=== PATIENT | female | born 1990 | race Caucasian/White ===

== ENCOUNTER 2019-03-24 15:08 | Emergency (ER) | payer OTHER ==
[2019-03-24] MEDS ORDERED: Sodium Chloride 0.9% 1000 ML 1,000 ML IV STA ×2 (15:38→16:56)
[2019-03-24] MEDS ORDERED: TORAdol 30 mg Injection IV ONE (15:38)
[2019-03-24] MEDS ORDERED: TORAdol 30 mg Injection ONE (15:46)
[2019-03-24] MEDS ORDERED: Sodium Chloride 0.9% 1000 ML 1,000 ML ONE ×2 (15:46→17:31)
[2019-03-24 15:58] LABS: Appearance CLEAR (CLEAR); Bilirubin NEGATIVE (NEGATIVE); Blood NEGATIVE Ery/ul (0-5); Epithelial Cells RARE /HPF (FEW); Glucose NEGATIVE (NEGATIVE); Ketones NEGATIVE (NEGATIVE); Leukocyte Esterase NEGATIVE (NEGATIVE); Nitrite NEGATIVE (NEGATIVE); Protein,Urine Dip NEGATIVE (Negative); Specific Gravity 1.005 (1.005-1.025); Urobilinogen NEGATIVE mg/dL (0-1)
[2019-03-24 16:07] LABS: BASOPHIL % 0.6 % (0.0-0.4); Basophil (Absolute #) 0.05 (0-0.4); Eosinophil % 1.1 % (0.00-5.0); Eosinophil (Absolute #) 0.09 (0-0.5); Granulocyte Absolute (ANC) 4.95 (1.4-6.9); Granulocytes % 60.6 % (36.0-66.0); Hematocrit 45.1 % (35-47); Hemoglobin 15.9 gm/dl (12.0-16.0); Lymphocyte (Absolute #) 2.43 (1.0-4.6); Lymphocytes % 29.7 % (24.0-44.0); Mean Cell Volume 89.8 fl (78-100); Mean Corpuscular Hemoglobin 31.7 pg (26-32); Mean Corpuscular Hgb Concent. 35.3 g/dl (32-36); Mean Platelet Volume 10.3 fl (6-9.5); Monocyte (Absolute #) 0.65 (0.0-1.3); Platelet Count 248 K/mm3 (150-450); Red Blood Count 5.02 M/mm3 (4.1-5.4); Red Cell Distribution Width 12.7 % (11.5-14.0); White Blood Count 8.2 K/mm3 (4.0-10.5)
[2019-03-24 16:17] LABS: ALBUMIN 4.4 g/dL (3.5-5.0); ALKALINE PHOSPHATASE 59 U/L (38-126); ANION GAP 12.7 MEQ/L (5-15); BLOOD UREA NITROGEN 9 mg/dL (7-17); CHLORIDE 102 mmol/L (98-107); Carbon Dioxide 29 mmol/L (22-30); Creatinine 1 0.66 mg/dL (0.52-1.04); Glucose 96 mg/dL (74-106); Potassium 3.9 mmol/L (3.5-5.1); SGOT/AST 23 U/L (14-36); SGPT/ALT 18 U/L (0-35); SODIUM 140 mmol/L (137-145); Total Protein 7.6 g/dL (6.3-8.2)
[2019-03-24 16:17] LABS: Bacteria NONE SEEN /HPF (NEGATIVE)
[2019-03-24 16:41] VITALS: O2SAT 100
[2019-03-24 17:29] VITALS: PULSE 96
--- NOTE | 2019-03-24 18:18 | ERPHSYRPT ---
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 PT STATES WORSE TODAY AND BLEEDING HAS STOPPED. Triage Nursing Assessment: PT ARRIVES P/W/D RESP EASY A@OX3 STATES SEVERE PAIN TO MID LOWER ABD PT IS GAURDED WITH MOVEMENT STATES ONLY MILD PAIN WITH PALPATION TO UPPER ABD THOUGH MODERATE PAIN TO LOWER WITH PALPATION. PT BS+X4 Physician History: Pt is a 28 y/o female that presented to the ED with pain in the LLQ. Pt got her period today and it is on her regular cycle. Pt denies any dysuria, frequency or urgency. Pt denies F/C/S. No N/V/D or abdominal pain. No SOB or cough. Timing/Duration: today Activites at Onset: none Quality: cramping, sharpness Onset Location: LLQ Pain Radiation: none Severity of Pain-Max: moderate Severity of Pain-Current: mild Prior abdominal problems: none Modifying Factors: Improves With: analgesics Associated Symptoms: abdominal pain Allergies/Adverse Reactions: No Known Drug Allergies Allergy (Unverified 03/24/19 15:15) Home Medications: Norgestimate-Ethinyl Estradiol [Tri-Sprintec] 1 tab PO DAILY 03/24/19 [History] - Review of Systems Constitutional: No Fever, No Chills Eyes: No Symptoms Ears, Nose, & Throat: No Symptoms Respiratory: No Cough, No Dyspnea Cardiac: No Chest Pain, No Edema, No Syncope Abdominal/Gastrointestinal: Abdominal Pain (LLQ) Genitourinary Symptoms: No Dysuria Musculoskeletal: No Back Pain, No Neck Pain Neurological: No Dizziness, No Focal Weakness, No Sensory Changes - Past Medical History Pertinent Past Medical History: Yes Other Medical History: OVARIAN CYST AND KIDNEY STONES - Past Surgical History Past Surgical History: Yes Other Surgical History: LEEP - Social History Smoking Status: Current every day smoker - Female History Hx Last Menstrual Period: 03/19/19 Hx Now: No - Nursing Vital Signs Nursing Vital Signs: Initial Vital Signs Pulse Rate 78 03/24/19 15:17 Respiratory Rate 18 03/24/19 15:17 Blood Pressure 160/104 03/24/19 15:17 O2 Sat by Pulse Oximetry 98 03/24/19 15:17 Pain Scale Pain Intensity 6 - Physical Exam General Appearance: mild distress, alert Eye Exam: PERRL/EOMI, eyes nml inspection Ears, Nose, Throat Exam: normal ENT inspection, TMs normal, pharynx normal, moist mucous membranes Neck Exam: normal inspection, non-tender, supple, full range of motion Respiratory Exam: normal breath sounds, lungs clear, No respiratory distress Cardiovascular Exam: regular rate/rhythm, normal heart sounds, normal peripheral pulses Gastrointestinal/Abdomen Exam: tenderness (LLQ) Pelvic Exam: not done Back Exam: normal inspection, normal range of motion, No CVA tenderness, No vertebral tenderness Extremity Exam: normal inspection, normal range of motion, pelvis stable Neurologic Exam: alert, oriented x 3, cooperative, 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 No hydronephrosis or evidence of obstructive urolithiasis) Ordered Tests: Active Orders 24 hr Category Date Time Status ABDOMEN AND PELVIS W/0 CONTRAS [CT] Stat Exams 03/24/19 15:39 Taken CBC W DIFF Stat Lab 03/24/19 16:02 Completed CMP Stat Lab 03/24/19 16:02 Completed UA W/RFX UR CULTURE Stat Lab 03/24/19 15:53 Completed Medication Summary Discontinued Medications Generic Name Dose Route Start Last Admin Trade Name Freq PRN Reason Stop Dose Admin Sodium Chloride 1,000 mls @ 999 mls/hr 03/24/19 15:38 03/24/19 17:38 Sodium Chloride 0.9% 1000 Ml IV 03/24/19 16:38 Infused .Q1H1M STA Infusion Sodium Chloride Confirm 03/24/19 15:46 Sodium Chloride 0.9% 1000 Ml Administered 03/24/19 15:47 Dose 1,000 mls @ ud .ROUTE .STK-MED ONE Sodium Chloride 1,000 mls @ 999 mls/hr 03/24/19 16:56 03/24/19 17:33 Sodium Chloride 0.9% 1000 Ml IV 03/24/19 17:56 999 mls/hr .Q1H1M STA Administration Sodium Chloride Confirm 03/24/19 17:31 Sodium Chloride 0.9% 1000 Ml Administered 03/24/19 17:32 Dose 1,000 mls @ ud .ROUTE .STK-MED ONE Ketorolac Tromethamine 30 mg 03/24/19 15:38 03/24/19 16:03 Toradol 30 Mg Injection IV 03/24/19 15:39 30 mg STAT ONE Administration Ketorolac Tromethamine Confirm 03/24/19 15:46 Toradol 30 Mg Injection Administered 03/24/19 15:47 Dose 30 mg .ROUTE .K-MED ONE Lab/Rad Data: Laboratory Result Diagrams 03/24/19 16:02 03/24/19 16:02 Laboratory Results 03/24/19 03/24/19 03/24/19 Range/Units 16:02 16:02 15:53 WBC 8.2 (4.0-10.5) K/mm3 RBC 5.02 (4.1-5.4) M/mm3 Hgb 15.9 (12.0-16.0) gm/dl Hct 45.1 (35-47) % MCV 89.8 (78-100) fl MCH 31.7 (26-32) pg MCHC 35.3 (32-36) g/dl RDW 12.7 (11.5-14.0) % Plt Count 248 (150-450) K/mm3 MPV 10.3 H (6-9.5) fl Gran % 60.6 (36.0-66.0) % Eos # (Auto) 0.09 (0-0.5) Absolute Lymphs (auto) 2.43 (1.0-4.6) Absolute Monos (auto) 0.65 (0.0-1.3) Lymphocytes % 29.7 (24.0-44.0) % Monocytes % 8.0 (0.0-12.0) % Eosinophils % 1.1 (0.00-5.0) % Basophils % 0.6 (0.0-0.4) % Absolute Granulocytes 4.95 (1.4-6.9) Basophils # 0.05 (0-0.4) Sodium 140 (137-145) mmol/L Potassium 3.9 (3.5-5.1) mmol/L Chloride 102 (98-107) mmol/L Carbon Dioxide 29 (22-30) mmol/L Anion Gap 12.7 (5-15) MEQ/L BUN 9 (7-17) mg/dL Creatinine 0.66 (0.52-1.04) mg/dL Estimated GFR > 60.0 ML/MIN Glucose 96 (74-106) mg/dL Calcium 10.0 (8.4-10.2) mg/dL Total Bilirubin 0.50 (0.2-1.3) mg/dL AST 23 (14-36) U/L ALT 18 (0-35) U/L Alkaline Phosphatase 59 (38-126) U/L Serum Total Protein 7.6 (6.3-8.2) g/dL Albumin 4.4 (3.5-5.0) g/dL Urine Color STRAW (YELLOW) Urine Appearance CLEAR (CLEAR) Urine pH 7.0 (5-6) Ur Specific [place] 1.005 (1.005-1.025) Urine Protein NEGATIVE (Negative) Urine Ketones NEGATIVE (NEGATIVE) Urine Blood NEGATIVE (0-5) Jose/ul Urine Nitrite NEGATIVE (NEGATIVE) Urine Bilirubin NEGATIVE (NEGATIVE) Urine Urobilinogen NEGATIVE (0-1) mg/dL Ur Leukocyte Esterase NEGATIVE (NEGATIVE) Urine WBC (Auto) NONE (0-5) /HPF Urine RBC (Auto) NONE (0-2) /HPF U Epithel Cells (Auto) RARE (FEW) /HPF Urine Bacteria (Auto) NONE SEEN (NEGATIVE) /HPF Urine Culture Reflexed NO (NO) Urine Glucose NEGATIVE (NEGATIVE) mg/dL - Progress Progress: improved Air Movement: good Progress Note: 03/24/19 18:18 Pt had lab work UA and CT of abdomen and pelvis. No UTI, normal labs. CT showed non obstructive nephrolithiasis. Pt got Torasdol for pain and 2 lit IVF bolus. She is feeling better. Pt is cleared for d/c. She should f/u with her PCP. If pain is not improved in a couple of days, pt should come to the ED or PCP again, to r/o any obstructing stone. Pt can take OTC Ibuprofen for pain. Will see patient in: office Counseled pt/family regarding: need for follow-up - Departure Departure Disposition: Home Clinical Impression: Nephrolithiasis Condition: Stable Critical Care Time: No Referrals: EDUAR POLANCO [Primary Care Provider] - Additional Instructions: Drink plenty of fluids. Can take Ibuprofen for pain. F/U with PCP.
[2019-03-24 18:40] VITALS: BP 166/100
--- NOTE | 2019-03-24 21:59 | XRAY ---
Indication: Abdomen/pelvic pain 1 week. Multiple contiguous axial images obtained through the abdomen and pelvis without contrast as ordered. Comparison: None Lung bases are clear. Heart is not enlarged. Noncontrasted stomach and bowel loops appear nonobstructed. Appendix not seen. No free fluid/air. At least 2 nonobstructing left renal microcalculi, largest 3-4 mm. Remaining liver, gallbladder, pancreas, spleen, adrenal glands, right kidney, ureters, bladder, uterus, and aorta appear unremarkable for noncontrast exam. Osseous structures intact. Impression: 1. Nonobstructing left renal microcalculi. 2. Remaining CT abdomen/pelvis without contrast exam is negative. Comment: Preliminary interpretation was made by [facility]. No critical discrepancy. CTDI 8.70
== END 2019-03-24 18:43 | disposition home or self-care (01) ==
LOC: ED 15:08
DX: N20.0 Calculus of kidney (principal)
CPT/HCPCS: 36415; 74176; 80053; 81001; 85025; 96360; 96374; 99284; J1885